=== PATIENT | male | born 1960 | race Caucasian/White ===

== ENCOUNTER 2020-03-27 12:42 | Outpatient (REF) | payer BC, SELFPAY | END 2020-03-27 12:43 | disposition home or self-care (01) | LOC: HO.LAB 12:42 | PROVIDERS: PCP Internal Medicine Medical Oncology; Visit Provider Internal Medicine Medical Oncology | DX: N39.0 Urinary tract infection, site not specified (principal) | CPT/HCPCS: 87086; 87147 ==

== ENCOUNTER 2020-07-15 06:58 | Outpatient (REF) | payer BC, SELFPAY ==
[2020-07-15 08:33] LABS: MANUAL DIFF FLAG NO
[2020-07-15 08:43] LABS: Basophils Percent Auto 0.2 % (0-2); Eosinophils Absolute Auto 0.2 X10*3/uL (0.0-0.4); Eosinophils Percent Auto 1.9 % (0-4); Hematocrit 50.6 % (42-52); Hemoglobin 16.6 g/dl (14.0-18.0); Imm Gran Abs Auto 0.03 X10*3/uL (0.00-0.03); Imm Gran Pct Auto 0.3 % (0.0-0.4); Lymphocytes Absolute Auto 2.2 X10*3/uL (1.2-4.9); Lymphocytes Percent Auto 24.4 % (20-40); Mean Corpuscular HGB Conc 32.8 g/dl (31.0-36.0); Mean Corpuscular Hemoglobin 30.5 pg (27.0-33.0); Mean Platelet Volume 10.5 fL (9.4-12.4); Monocytes Absolute Auto 0.7 X10*3/uL (0.1-1.2); Monocytes Percent Auto 8.2 % (2-11); Neutrophils Absolute Auto 5.8 X10*3/uL (2.0-8.3); Platelet Count 257 X10*3/uL (160-400); Red Blood Count 5.44 X10*6/uL (4.60-5.80); White Blood Count 8.9 X10*3/uL (4.8-10.8)
[2020-07-15 09:09] LABS: Estimated Average Glucose 255 mg/dL; Hemoglobin A1c % 10.5 %
[2020-07-15 09:13] LABS: Alanine Aminotransferase 23 U/L (0-40); Alkaline Phosphatase 71 U/L (39-117); Anion Gap 13 (12-20); Aspartate Amino Transferase 13 U/L (5-37); Bilirubin Total 0.8 mg/dL (0.0-1.0); Blood Urea Nitrogen 13 mg/dL (9-16); Calcium 8.7 mg/dL (8.4-10.2); Carbon Dioxide 27 mmol/L (22-29); Chloride 105 mmol/L (96-108); Cholesterol 155 mg/dL; Estimated Glomerular Filt Rate > 60; Glucose Fasting 230 mg/dL (60-99); HDL Cholesterol 29 mg/dL; LDL Cholesterol Calculated 92 mg/dl; Potassium 4.7 mmol/L (3.3-5.1); Sodium 140 mmol/L (135-145); Total Protein 6.2 g/dL (6.5-8.0); Triglycerides 170 mg/dL
[2020-07-15 09:18] LABS: Prostate Specific Antigen 1.49 ng/mL (<0.05-4.0)
== END 2020-07-15 06:59 | disposition home or self-care (01) ==
LOC: HO.LAB 06:58
PROVIDERS: PCP Internal Medicine Medical Oncology; Visit Provider Internal Medicine Medical Oncology
DX: E11.9 Type 2 diabetes mellitus without complications (principal); R97.20 Elevated prostate specific antigen [PSA]; E66.9 Obesity, unspecified; E78.5 Hyperlipidemia, unspecified
CPT/HCPCS: 36415; 80053; 80061; 83036; 84153; 85025

== ENCOUNTER 2020-10-16 10:09 | Outpatient (REF) | payer BC, SELFPAY ==
[2020-10-16 13:17] LABS: MANUAL DIFF FLAG NO
[2020-10-16 13:21] LABS: Basophils Percent Auto 0.4 % (0-2); Eosinophils Absolute Auto 0.1 X10*3/uL (0.0-0.4); Eosinophils Percent Auto 1.6 % (0-4); Hematocrit 48.6 % (42-52); Hemoglobin 15.9 g/dl (14.0-18.0); Imm Gran Abs Auto 0.02 X10*3/uL (0.00-0.03); Imm Gran Pct Auto 0.2 % (0.0-0.4); Lymphocytes Absolute Auto 2.6 X10*3/uL (1.2-4.9); Lymphocytes Percent Auto 30.9 % (20-40); Mean Corpuscular HGB Conc 32.7 g/dl (31.0-36.0); Mean Corpuscular Hemoglobin 30.7 pg (27.0-33.0); Mean Corpuscular Volume 93.8 fL (80-98); Mean Platelet Volume 10.3 fL (9.4-12.4); Monocytes Absolute Auto 0.7 X10*3/uL (0.1-1.2); Monocytes Percent Auto 8.6 % (2-11); Neutrophils Absolute Auto 4.9 X10*3/uL (2.0-8.3); Neutrophils Percent Auto 58.3 % (45-73); Platelet Count 297 X10*3/uL (160-400); Red Blood Count 5.18 X10*6/uL (4.60-5.80); Red Cell Distribution Width 12.1 % (11.0-16.0); White Blood Count 8.3 X10*3/uL (4.8-10.8)
[2020-10-16 13:45] LABS: Alanine Aminotransferase 20 U/L (0-40); Albumin Level 4.1 g/dL (3.5-5.0); Alkaline Phosphatase 73 U/L (39-117); Anion Gap 14 (12-20); Aspartate Amino Transferase 15 U/L (5-37); Bilirubin Total 0.5 mg/dL (0.0-1.0); Blood Urea Nitrogen 17 mg/dL (9-16); Calcium 9.2 mg/dL (8.4-10.2); Carbon Dioxide 25 mmol/L (22-29); Chloride 104 mmol/L (96-108); Cholesterol 156 mg/dL; Estimated Glomerular Filt Rate > 60; Glucose Fasting 209 mg/dL (60-99); HDL Cholesterol 29 mg/dL; LDL Cholesterol Calculated 98 mg/dl; Potassium 5.1 mmol/L (3.3-5.1); Sodium 138 mmol/L (135-145); Total Protein 6.5 g/dL (6.5-8.0); Triglycerides 149 mg/dL
[2020-10-16 14:00] LABS: Estimated Average Glucose 212 mg/dL
[2020-10-16 14:07] LABS: Prostate Specific Antigen 3.39 ng/mL (<0.05-4.0)
== END 2020-10-16 10:10 | disposition home or self-care (01) ==
LOC: HO.10HDL 10:09
PROVIDERS: PCP Internal Medicine Medical Oncology; Visit Provider Internal Medicine Medical Oncology
DX: Z12.5 Encounter for screening for malignant neoplasm of prostate (principal); E11.9 Type 2 diabetes mellitus without complications; E66.9 Obesity, unspecified; E78.5 Hyperlipidemia, unspecified; N52.9 Male erectile dysfunction, unspecified; N40.0 Benign prostatic hyperplasia without lower urinary tract symptoms
CPT/HCPCS: 36415; 80053; 80061; 83036; 84153; 85025

== ENCOUNTER 2021-01-17 07:52 | Outpatient (REF) | payer BC, SELFPAY ==
[2021-01-17 10:20] LABS: MANUAL DIFF FLAG NO
[2021-01-17 10:29] LABS: Basophils Percent Auto 0.3 % (0-2); Eosinophils Absolute Auto 0.1 X10*3/uL (0.0-0.4); Eosinophils Percent Auto 1.6 % (0-4); Hematocrit 47.2 % (42-52); Hemoglobin 15.8 g/dl (14.0-18.0); Imm Gran Abs Auto 0.02 X10*3/uL (0.00-0.03); Imm Gran Pct Auto 0.2 % (0.0-0.4); Lymphocytes Absolute Auto 2.1 X10*3/uL (1.2-4.9); Mean Corpuscular HGB Conc 33.5 g/dl (31.0-36.0); Mean Corpuscular Hemoglobin 31.2 pg (27.0-33.0); Mean Corpuscular Volume 93.1 fL (80-98); Mean Platelet Volume 10.4 fL (9.4-12.4); Monocytes Absolute Auto 0.7 X10*3/uL (0.1-1.2); Neutrophils Absolute Auto 5.8 X10*3/uL (2.0-8.3); Neutrophils Percent Auto 65.9 % (45-73); Platelet Count 253 X10*3/uL (160-400); Red Blood Count 5.07 X10*6/uL (4.60-5.80); Red Cell Distribution Width 12.1 % (11.0-16.0); White Blood Count 8.8 X10*3/uL (4.8-10.8)
[2021-01-17 10:40] LABS: Estimated Average Glucose 189 mg/dL; Hemoglobin A1c % 8.2 %
[2021-01-17 10:42] LABS: Alanine Aminotransferase 14 U/L (0-40); Alkaline Phosphatase 69 U/L (39-117); Anion Gap 14 (12-20); Aspartate Amino Transferase 13 U/L (5-37); Bilirubin Total 0.5 mg/dL (0.0-1.0); Blood Urea Nitrogen 12 mg/dL (9-16); Calcium 8.9 mg/dL (8.4-10.2); Carbon Dioxide 27 mmol/L (22-29); Chloride 105 mmol/L (96-108); Cholesterol 140 mg/dL; Estimated Glomerular Filt Rate > 60; Glucose Fasting 148 mg/dL (60-99); HDL Cholesterol 31 mg/dL; LDL Cholesterol Calculated 90 mg/dl; Potassium 4.5 mmol/L (3.3-5.1); Sodium 141 mmol/L (135-145); Total Protein 6.3 g/dL (6.5-8.0); Triglycerides 97 mg/dL
== END 2021-01-17 07:53 | disposition home or self-care (01) ==
LOC: HO.10HDL 07:52
PROVIDERS: Visit Provider Internal Medicine Medical Oncology
DX: E11.9 Type 2 diabetes mellitus without complications (principal); I25.10 Atherosclerotic heart disease of native coronary artery without angina pectoris; G47.30 Sleep apnea, unspecified
CPT/HCPCS: 36415; 80053; 80061; 83036; 85025

== ENCOUNTER 2021-04-01 07:44 | Outpatient (REF) | payer BC, SELFPAY ==
[2021-04-01 10:16] LABS: MANUAL DIFF FLAG NO
[2021-04-01 10:18] LABS: Basophils Percent Auto 0.3 % (0-2); Eosinophils Absolute Auto 0.2 X10*3/uL (0.0-0.4); Eosinophils Percent Auto 1.7 % (0-4); Hematocrit 47.3 % (42.0-52.0); Hemoglobin 15.7 g/dl (14.0-18.0); Imm Gran Abs Auto 0.03 X10*3/uL (0.00-0.03); Imm Gran Pct Auto 0.3 % (0.0-0.4); Lymphocytes Absolute Auto 2.2 X10*3/uL (1.2-4.9); Lymphocytes Percent Auto 23.8 % (20-40); Mean Corpuscular HGB Conc 33.2 g/dl (31.0-36.0); Mean Corpuscular Hemoglobin 31.1 pg (27.0-33.0); Mean Corpuscular Volume 93.7 fL (80.0-98.0); Mean Platelet Volume 10.3 fL (9.4-12.4); Monocytes Absolute Auto 0.8 X10*3/uL (0.1-1.2); Monocytes Percent Auto 8.2 % (2-11); Neutrophils Absolute Auto 6.2 x10*3/uL (2.0-8.3); Neutrophils Percent Auto 65.7 % (45-73); Platelet Count 241 X10*3/uL (160-400); Red Blood Count 5.05 X10*6/uL (4.60-5.80); Red Cell Distribution Width 12.6 % (11.0-16.0); White Blood Count 9.4 X10*3/uL (4.8-10.8)
[2021-04-01 10:39] LABS: Estimated Average Glucose 174 mg/dL; Hemoglobin A1c % 7.7 %
[2021-04-01 10:51] LABS: Alanine Aminotransferase 16 U/L (0-40); Albumin Level 3.9 g/dL (3.5-5.0); Alkaline Phosphatase 61 U/L (39-117); Anion Gap 13 (12-20); Aspartate Amino Transferase 12 U/L (5-37); Bilirubin Total 0.2 mg/dL (0.0-1.0); Blood Urea Nitrogen 12 mg/dL (9-16); Carbon Dioxide 28 mmol/L (22-29); Chloride 105 mmol/L (96-108); Estimated Glomerular Filt Rate > 60; Glucose Fasting 150 mg/dL (60-99); Potassium 4.6 mmol/L (3.3-5.1); Sodium 141 mmol/L (135-145); Total Protein 6.3 g/dL (6.5-8.0)
[2021-04-01 11:21] LABS: PSA,Total (Free>4and<10) 1.41 ng/mL (0.00-4.00)
== END 2021-04-01 07:45 | disposition home or self-care (01) ==
LOC: HO.10HDL 07:44
PROVIDERS: Visit Provider Internal Medicine Medical Oncology
DX: Z12.5 Encounter for screening for malignant neoplasm of prostate (principal); H60.391 Other infective otitis externa, right ear; R39.9 Unspecified symptoms and signs involving the genitourinary system; M54.50 Low back pain, unspecified; I25.10 Atherosclerotic heart disease of native coronary artery without angina pectoris; N52.9 Male erectile dysfunction, unspecified; E11.9 Type 2 diabetes mellitus without complications
CPT/HCPCS: 36415; 80053; 83036; 84153; 85025

== ENCOUNTER 2021-11-13 08:46 | Outpatient (REF) | payer BC, SELFPAY ==
--- NOTE | ~2021-11-13 | XR_ITS ---
EXAMINATION: XR SHOULDER, LEFT CLINICAL INFORMATION: Shoulder pain COMPARISON: None TECHNIQUE: Left shoulder is imaged in 3 views. FINDINGS: No fracture or dislocation. No visible rotator cuff calcifications. The glenohumeral joint appears normal. The acromioclavicular alignment is normal. There are osteoarthritic changes acromioclavicular joint with joint narrowing and superior to inferior spurring. XR/XR shoulder LT min 2V IMPRESSION: -Osteoarthritis acromioclavicular joint. -No visible rotator cuff calcifications.
== END 2021-11-13 08:47 | disposition home or self-care (01) ==
LOC: HO.HOSX 08:46
PROVIDERS: Visit Provider Orthopaedic Surgery
DX: M25.512 Pain in left shoulder (principal)
CPT/HCPCS: 73030

== ENCOUNTER 2022-01-06 08:25 | Outpatient (REF) | payer BC, SELFPAY ==
[2022-01-06 08:39] LABS: MANUAL DIFF FLAG NO
[2022-01-06 09:14] LABS: Basophils Percent Auto 0.4 % (0-2); Eosinophils Absolute Auto 0.1 X10*3/uL (0.0-0.4); Eosinophils Percent Auto 1.5 % (0-4); Hematocrit 46.9 % (42.0-52.0); Hemoglobin 15.5 g/dl (14.0-18.0); Imm Gran Abs Auto 0.03 X10*3/uL (0.00-0.03); Imm Gran Pct Auto 0.4 % (0.0-0.4); Lymphocytes Absolute Auto 2.1 X10*3/uL (1.2-4.9); Lymphocytes Percent Auto 24.2 % (20-40); Mean Corpuscular Hemoglobin 31.2 pg (27.0-33.0); Mean Corpuscular Volume 94.4 fL (80.0-98.0); Mean Platelet Volume 10.8 fL (9.4-12.4); Monocytes Absolute Auto 0.9 X10*3/uL (0.1-1.2); Monocytes Percent Auto 10.2 % (2-11); Neutrophils Absolute Auto 5.4 x10*3/uL (2.0-8.3); Neutrophils Percent Auto 63.3 % (45-73); Platelet Count 208 X10*3/uL (160-400); Red Blood Count 4.97 X10*6/uL (4.60-5.80); Red Cell Distribution Width 12.3 % (11.0-16.0); White Blood Count 8.5 X10*3/uL (4.8-10.8)
[2022-01-06 09:37] LABS: Estimated Average Glucose 177 mg/dL; Hemoglobin A1c % 7.8 %
[2022-01-06 09:48] LABS: Alanine Aminotransferase 13 U/L (0-40); Albumin Level 4.2 g/dL (3.5-5.0); Alkaline Phosphatase 65 U/L (39-117); Anion Gap 15 (12-20); Aspartate Amino Transferase 15 U/L (5-37); Bilirubin Total 0.5 mg/dL (0.0-1.0); Blood Urea Nitrogen 13 mg/dL (9-16); Calcium 9.4 mg/dL (8.4-10.2); Carbon Dioxide 27 mmol/L (22-29); Chloride 104 mmol/L (96-108); Cholesterol 136 mg/dL; Estimated Glomerular Filt Rate > 60; Glucose Fasting 146 mg/dL (60-99); HDL Cholesterol 34 mg/dL; LDL Cholesterol Calculated 83 mg/dl; Potassium 5.3 mmol/L (3.3-5.1); Sodium 141 mmol/L (135-145); Total Protein 6.4 g/dL (6.5-8.0); Triglycerides 97 mg/dL
[2022-01-06 10:09] LABS: Prostate Specific Antigen 1.33 ng/mL (<0.05-4.0)
[2022-01-06 10:30] LABS: Creatinine Urine 145.23 mg/dL; Microalbum/Creatinine Ratio Ur 5.5 ug/mg cr
== END 2022-01-06 08:26 | disposition home or self-care (01) ==
LOC: HO.LAB 08:25
PROVIDERS: PCP Internal Medicine Medical Oncology; Visit Provider Internal Medicine Medical Oncology
DX: Z12.5 Encounter for screening for malignant neoplasm of prostate (principal); R97.20 Elevated prostate specific antigen [PSA]; E78.5 Hyperlipidemia, unspecified; E66.01 Morbid (severe) obesity due to excess calories; E11.9 Type 2 diabetes mellitus without complications
CPT/HCPCS: 36415; 80053; 80061; 82043; 83036; 84153; 85025

== ENCOUNTER 2022-01-13 10:00 | Outpatient (RCR) | payer BC, SELFPAY ==
--- NOTE | 2021-12-16 13:56 | MHC.PT.EP ---
[facility] [place] Office [place] Office [place] Office [address] [phone] F: [phone] F: [phone] F: [phone] F: [phone] Physical Therapy Plan of Care Date of Evaluation: Date of Surgery: N/A Diagnosis: impingement syndrome of left shoulder Assessment: Pt is a 60 yo male presenting to PT with referral for left shoulder impingement. He presents to PT with current impairments in pain, decreased ROM, impaired strength, impaired postural awareness, and soft tissue restrictions. He is TTP throughout L UT, levator, AC jt, and RTC. He is limited functionally by sleeping, lifting, reaching, and overhead ADLs. He is a good candidate for skilled PT in order to address current impairments to facilitate return to PLOF. He will be seen 2x/wewek for 4 weeks and will be reassessed at that time. Frequency and Duration: The patient will be seen 2x/4weeks Short Term Goals: Pt will be I in HEP to show independence in management of condition Pt will improve shoulder IR ROM by 10* to improve tolerance to ADLs such as dressing. Color Repairer Goals: Pt will demonstrate full ROM throughout L shoulder to assist with overhead reaching and overhead ADLs Pt will improve shoulder flexion strength to 5/5 MMT grade to assist with lifting mechanics. Pt will demonstrate improvements in function as evidenced by statistically significant improvement in SPADI outcome measure Treatment Plan: Modalities to reduce pain, spasms and effusion. Manual therapy to restore motion and function. Therapeutic exercise to improve strength and flexibility. Neuromuscular re-education for posture and balance. Therapeutic activities to return to functional activities of daily living. Electronically signed by: Zuleyka Bauman, PT, DPT Please sign and return to therapist. Thank you for your referral.
--- NOTE | 2022-02-23 15:26 | MHC.PT.DC ---
[facility] [place] Office [place] Office [place] Office [address] [facility] [phone] F: [phone] F: [phone] F: [phone] F: [phone] Physical Therapy Discharge Report Diagnosis: impingement syndrome of left shoulder Date of Surgery: N/A Date of Evaluation: 12/16/21 Date of Discharge: 02/23/22 Treatments to Date: 5 Cancellations to Date: 2 No Shows to Date: 1 Discharge Status: Visit Non-compliance Discharge Summary: Pt was seen for PT from 12/16/21-01/13/22. His last attended appointment was 01/13/22. He attended 5 PT sessions, had 2 cancellations and 1 no-show appointment including a no-show for his last scheduled appointment. Pt is being D/C from skilled PT as he has not attended or reached out to reschedule in > 30 days. Pt current level of function unknown at this time. Electronically signed by: Zuleyka Bauman, PT, DPT Please sign and return to therapist. Thank you for your referral.
== END 2022-02-23 15:26 | disposition home or self-care (01) ==
LOC: HO.PT 10:00
PROVIDERS: PCP Internal Medicine Medical Oncology; Visit Provider Orthopaedic Surgery
DX: M75.42 Impingement syndrome of left shoulder (principal)
CPT/HCPCS: 97110; 97140; 97161

== ENCOUNTER 2022-07-21 13:50 | Outpatient (REF) | payer BC, SELFPAY ==
--- NOTE | ~2022-07-21 | XR_ITS ---
EXAMINATION: XR CHEST CLINICAL INFORMATION: Pneumonia COMPARISON: Chest radiographs 02/16/2017, 11/02/2016; right ribs 02/16/2017. TECHNIQUE: Frontal view and 3 lateral views of the chest are obtained for 4 views. FINDINGS: The lungs are clear and there is no airspace consolidation or groundglass opacity. Heart size normal. Vascularity normal. Costophrenic sulci are clear. The hilar and mediastinal contours are unremarkable. Small nodular density corresponding to a bone island overlying right anterior third rib is similar to rib series 02/16/2017. There are old healed fractures right seventh and eighth ribs. Degenerative changes thoracic spine. No acute bony abnormality. XR/XR chest 2V IMPRESSION: No acute intrathoracic disease.
== END 2022-07-21 13:51 | disposition home or self-care (01) ==
LOC: HO.XRAY 13:50
PROVIDERS: PCP Internal Medicine Medical Oncology; Visit Provider Internal Medicine Medical Oncology
DX: J18.9 Pneumonia, unspecified organism (principal)
CPT/HCPCS: 71046

== ENCOUNTER 2022-10-07 07:05 | Outpatient (REF) | payer BC, SELFPAY ==
[2022-10-07 07:17] LABS: MANUAL DIFF FLAG NO
[2022-10-07 08:49] LABS: Basophils Percent Auto 0.4 % (0-2); Eosinophils Absolute Auto 0.2 X10*3/uL (0.0-0.4); Hematocrit 49.1 % (42.0-52.0); Hemoglobin 16.3 g/dl (14.0-18.0); Imm Gran Abs Auto 0.02 X10*3/uL (0.00-0.03); Imm Gran Pct Auto 0.2 % (0.0-0.4); Lymphocytes Absolute Auto 2.7 X10*3/uL (1.2-4.9); Lymphocytes Percent Auto 26.3 % (20-40); Mean Corpuscular HGB Conc 33.2 g/dl (31.0-36.0); Mean Corpuscular Hemoglobin 31.2 pg (27.0-33.0); Mean Corpuscular Volume 93.9 fL (80.0-98.0); Mean Platelet Volume 10.1 fL (9.4-12.4); Monocytes Percent Auto 9.5 % (2-11); Neutrophils Absolute Auto 6.3 x10*3/uL (2.0-8.3); Neutrophils Percent Auto 61.6 % (45-73); Platelet Count 273 X10*3/uL (160-400); Red Blood Count 5.23 X10*6/uL (4.60-5.80); Red Cell Distribution Width 12.6 % (11.0-16.0); White Blood Count 10.3 X10*3/uL (4.8-10.8)
[2022-10-07 09:00] LABS: Estimated Average Glucose 117 mg/dL; Hemoglobin A1c % 5.7 %
[2022-10-07 09:28] LABS: Alanine Aminotransferase 13 U/L (0-40); Albumin Level 4.1 g/dL (3.5-5.0); Alkaline Phosphatase 66 U/L (39-117); Anion Gap 15 (12-20); Aspartate Amino Transferase 13 U/L (5-37); Bilirubin Total 0.6 mg/dL (0.0-1.0); Blood Urea Nitrogen 15 mg/dL (9-16); Calcium 9.7 mg/dL (8.4-10.2); Carbon Dioxide 25 mmol/L (22-29); Chloride 105 mmol/L (96-108); Cholesterol 137 mg/dL; Estimated Glomerular Filt Rate > 60; Glucose Random 109 mg/dL (60-115); HDL Cholesterol 35 mg/dL; LDL Cholesterol Calculated 83 mg/dl; Potassium 4.3 mmol/L (3.3-5.1); Sodium 141 mmol/L (135-145); Total Protein 6.8 g/dL (6.5-8.0); Triglycerides 95 mg/dL
[2022-10-07 09:39] LABS: Prostate Specific Antigen 3.05 ng/mL (<0.05-4.0)
== END 2022-10-07 07:06 | disposition home or self-care (01) ==
LOC: HO.LAB 07:05
PROVIDERS: PCP Internal Medicine Medical Oncology; Visit Provider Internal Medicine Medical Oncology
DX: I25.10 Atherosclerotic heart disease of native coronary artery without angina pectoris (principal); E11.9 Type 2 diabetes mellitus without complications; R97.20 Elevated prostate specific antigen [PSA]; N40.0 Benign prostatic hyperplasia without lower urinary tract symptoms; E66.01 Morbid (severe) obesity due to excess calories; Z12.5 Encounter for screening for malignant neoplasm of prostate
CPT/HCPCS: 36415; 80053; 80061; 83036; 84153; 85025

== ENCOUNTER 2022-10-08 10:42 | Outpatient (AMB) | payer BC, SELFPAY ==
[2022-10-08 10:52] VITALS: BP 136/75; PULSE 77; BMI 47.4
--- NOTE | 2022-10-08 10:52 | A.OFFVIS_ITS ---
Intake Vital Signs 10/08/22 10:52 Height 5 ft 10 in Weight 330 lb 7.567 oz BMI 47.4 BP 136/75 Blood Pressure Location Lt brachial Position Sitting Pulse 77 Intake Visit Reasons: colonoscopy screening Intake Note: Ulises presents in office as a new.patient for a colonoscopy screening PT CC: pt reports having no concerns pt denies any other GI Issues Equity Research Analyst Required: No Accompanied by: Spouse Allergies No Known Allergies Allergy (Unverified 10/08/22 10:52) Medication List - Last Reviewed 10/08/22 by Deandre Mckeon gabapentin 300 mg PO TID magnesium 250 mg PO DAILY meclizine 25 mg PO TID PRN metformin 1,000 mg PO BID metoprolol tartrate 25 mg PO BID omeprazole 20 mg PO DAILY pioglitazone 30 mg PO DAILY simvastatin 40 mg PO DAILY tamsulosin 0.4 mg PO DAILY HPI HPI Comments History of Present Illness Details 61-year-old male referred for screening colonoscopy- colonoscopy > 10 years ago had multiple polyps polyps- never followed up-he is here today with his he says he has no GI he or general issues Bowels are normal- Appetite is good Cardiology- follows with PCP- distant hx cardiac stents- No nausea, vomiting, hematemesis, hematochezia fever chills No chest pain, shortness of breath headaches or disease PFSH Medical History Diabetes Surgical History History of intravascular stent placement Social History (Updated 10/08/22 @ 11:21 by Nancy Byers PA-C) Household Members Other:: Current occupational status: employed Current occupation: [employer] Review of Systems Const All systems reviewed & are unremarkable except as noted in HPI and below Card Denies chest pain and Denies dyspnea Resp Denies dyspnea GI Denies abdominal pain, Denies hematochezia, Reports heartburn, Denies diarrhea, Denies nausea and Denies vomiting Physical Exam Vital Signs: Last Vital Signs Pulse 77 10/08/22 10:52 BP 136/75 10/08/22 10:52 BMI result Body Mass Index 47.4 Const General: comfortable Nutritional Appearance: obese Orientation/consciousness: patient oriented x3 Limitations: no limitations Eyes Sclerae: sclerae normal Resp Effort & Inspection: normal respiratory effort and able to speak in complete sentences Auscultation: clear to auscultation bilaterally Cardio Rate: regular rate Rhythm: regular rhythm Heart sounds: S1 normal heart sound present and S2 normal heart sound present GI Inspection: Yes obesity Palpation (GI): Soft to palpation and nontender Auscultation: normal bowel sounds Skin General skin exam: no rashes or lesions noted Neuro General: patient oriented x3 Extrem General: Yes full ROM Psych Speech and movement: Clear speech present Affect: normal affect Attitude: cooperative Thought process: Normal thought process present Thought content: Normal thought content present Judgement: Fair judgement present (Psych) Results Reviewed Results Reviewed: 2012- Dr. Montilla- 7 adenomas- 2 hyperplastic Assessment & Plan Assessment & Plan (1) Acid reflux: Code(s): K21.9 - Gastro-esophageal reflux disease without esophagitis (2) Hx of adenomatous colonic polyps: Code(s): Z86.010 - Personal history of colonic polyps Plan: Polyp surveillance colonoscopy in reinforced importance of follow up Plan Colonoscopy MG prep omit metformin kaveh before and no DM meds morning of- Bariatric bed Orders: Orders EGD/[place] Combo - GI Use Only Today K21.9 - Gastro-esophageal reflux disease without esophagitis, Z86.010 - Personal history of colonic polyps Medications: New bisacodyl (Dulcolax (bisacodyl)) Take 4 tablets by mouth at 12:00pm the day before your procedure. 20 mg (4 x 5 mg) PO ONCE 1 day 4 tabs 0RF colonoscopy prep Z12.11 - Encounter for screening for malignant neoplasm of colon polyethylene glycol 3350 (Miralax) Take as directed by mouth the day before your procedure. 238 grams PO ONCE 1 day 238 grams 0RF Patient Instructions: 61-year-old male personal history of multiple colon adenomas-has not followed up since 17/03-no GI complaints Scheduled for polyp surveillance colonoscopy, discussed procedure, rare risk need for escorted due to anesthesia Importance of follow through, his is present there are no barriers to understanding identify-review diabetes medications Encouraged to call with any questions or concerns Coding Level of Care Code New Pt Level 3 (54735) Diagnoses Acid reflux K21.9 Hx of adenomatous colonic polyps Z86.010 Time Spent (min) 35
== END 2022-10-08 12:25 | disposition home or self-care (01) ==
PROVIDERS: PCP Internal Medicine Medical Oncology; Visit Provider Physician Assistant
DX: K21.9 Gastro-esophageal reflux disease without esophagitis (principal); Z86.010 Personal history of colon polyps
CPT/HCPCS: 99203

== ENCOUNTER → 2022-10-08 10:42 | Outpatient (BNVA) | payer BC, SELFPAY | PROVIDERS: PCP Internal Medicine Medical Oncology; Visit Provider Physician Assistant ==

== ENCOUNTER 2022-10-30 10:36 | Outpatient (AMB) | payer BC, SELFPAY ==
--- NOTE | 2022-10-30 10:42 | A.OFFVIS_ITS ---
Intake Vital Signs 10/30/22 10:43 Height 5 ft 10 in Weight 330 lb BMI 47.3 Intake Visit Reasons: Left Shoulder Pain Intake Note: Ulises is a 61 year old male who presents today for a follow up of his left shoulder. When he was seen he was referred to physical therapy. States he has completed P.T but cont's to be limited when reaching back. States he is cont' to do his shoulder exercises at home. Allergies No Known Allergies Allergy (Unverified 10/30/22 10:44) HPI Left Shoulder Pain HPI Details lUises is a 61 year old Diabetic man who returns with complaints of left shoulder pain. He was last seen on 11/13/21 for shoulder impingement, and sent for PT. He says he has completed PT and continues to do exercises at home, with some relief. He complains today of pain in his left shoulder, worse with overhead activity, reaching behind his back, & at night. He says he has pain all day long and is worst with reaching backwards. He has evidence of bilateral carpal tunnel syndrome and permanent nerve damage in his shoulders , seen on a NCS sometime in 2021, performed by Dr. Hurley. These results are not in the system at this time and the patient does not have a copy. He has numbness & tingling from his shoulders and down into his hands. He denies a C-spine MRI in the past, and has not been seen by a specialist for this. He takes Gabapentin, with some relief, and said PT helps more with his numbness than with his pain. [facility] Medical History Diabetes Surgical History History of intravascular stent placement Social History Household Members Other:: Current occupational status: employed Current occupation: [employer] Review of Systems Const All systems reviewed & are unremarkable except as noted in HPI and below Physical Exam Vital Signs: BMI result Body Mass Index 47.3 Const General: no acute distress and alert Orientation/consciousness: patient oriented x3 Neuro General: patient oriented x3 Extrem Other: Left Shoulder: - empty can + H&N + Crank test - Lif[facility] ER 45 IR L5 with pain Psych Appearance: grossly normal Affect: normal affect Attitude: cooperative Office Procedures Joint Injection/Drain Joint Injection/Drain Details: Injected 1 mL of Decadron and 3 mL 1% lidocaine and 3 mL of 0.25% Marcaine. Site was prepped using aseptic technique. Patient tolerated the procedure well. Primary Site: left shoulder Approach Used: posterolateral Coding 49990 - Large joint Procedure code (CPT) selection complete Results Reviewed Results Reviewed: 10/30/22 11:11 Lidocaine HCl 2 % MPF [Xylocaine 2 % MPF] 5 ml .ROUTE .STK-MED ONE dexAMETHasone sod phosphate [Decadron] 4 mg .ROUTE .STK-MED ONE I personally reviewed relevant radiographs. AC OA left shoulder. Otherwise unremarkable. Assessment & Plan Assessment & Plan (1) Impingement syndrome, shoulder, left: Code(s): M75.42 - Impingement syndrome of left shoulder Plan: This is a 61 year old man with left shoulder impingement. He has pain with daily activity, worse with overhead activity and at night. He found some relief from PT, and denies any other treatment. I discussed his diagnosis and treatment options. I injected his left shoulder today, which he tolerated well. He can follow up prn (2) Diabetes mellitus: Code(s): E11.9 - Type 2 diabetes mellitus without complications Plan: I discussed the hyperglycemic effects of steroid injections. (3) Numbness and tingling of both upper extremities: Code(s): R20.0 - Anesthesia of skin; R20.2 - Paresthesia of skin Plan: Patient reports having a NCS performed by Dr. Hurley in 2021, that is not in our system. He has numbness, tingling, and burning primarily in his left shoulder and down into his hands. He was told he had bilateral carpal tunnel syndrome. I will reach out to Dr. Hurley to obtain a copy of this study. He will follow up when completed for review. Plan Scribed for Min Marie MD by Carlos Manuel Platt, medical information officer, on 10/30/22 at 11:15 AM, EST. Coding Level of Care Code Est Pt Level 4 (63820) Diagnoses Impingement syndrome, shoulder, left M75.42 Diabetes mellitus E11.9 Numbness and tingling of both upper extremities R20.0; R20.2 CPT Codes Coding - 98761 Large joint: 35641 - Large joint ([id number])
[2022-10-30 10:43] VITALS: BMI 47.3
== END 2022-10-30 12:03 | disposition home or self-care (01) ==
PROVIDERS: PCP Internal Medicine Medical Oncology; Visit Provider Orthopaedic Surgery
DX: M75.42 Impingement syndrome of left shoulder (principal); R20.0 Anesthesia of skin; R20.2 Paresthesia of skin
CPT/HCPCS: 20610; 99214

== ENCOUNTER → 2022-10-30 10:36 | Outpatient (BNVA) | payer BC, SELFPAY | PROVIDERS: PCP Internal Medicine Medical Oncology; Visit Provider Orthopaedic Surgery | DX: M75.42 Impingement syndrome of left shoulder (principal); R20.0 Anesthesia of skin; R20.2 Paresthesia of skin; E11.9 Type 2 diabetes mellitus without complications | CPT/HCPCS: 20610; J1100 ==

== ENCOUNTER 2022-12-15 09:21 | Day surgery (SDC) | payer BC, SELFPAY ==
[2022-12-11 12:26] VITALS: BMI 47.4
[2022-12-14 10:01] VITALS: BMI 43.0
--- NOTE | 2022-12-14 11:05 | P.CONAN_ITS ---
Documented by User: Mala Reynaga NP 12/14/22 11:51 HPI - Anesthesia Eval Consult details Narrative: 61yo M for?Upper Endoscopy and Colonoscopy CAD with stent, 2007. No cardiology visits since 2011 per [facility]. Ozempic SQ weekly on Wednesdays. Last dose 12/09/22. [facility] Active Problems Active Problems: All Active Problems (Updated 12/14/22 @ 10:05 by Luiza Garza RN) Numbness and tingling of both upper extremities (Acute) Hx of adenomatous colonic polyps (Acute) Acid reflux (Acute) Encounter for screening colonoscopy (Acute) Diabetes mellitus (Acute) Impingement syndrome, shoulder, left (Acute) Past Medical History Medical History Shoulder pain, bilateral CTS (carpal tunnel syndrome) Hx of renal calculi BPH (benign prostatic hyperplasia) BERE (obstructive sleep apnea) Personal history of COVID-19 DJD (degenerative joint disease) Renal calculus, bilateral Elevated cholesterol CAD (coronary artery disease) Diabetes Surgical History Surgical History Hx of colonoscopy History of surgery Hx of arthroscopic knee surgery History of incision and drainage Hx of cardiac catheterization H/O heart artery stent History of intravascular stent placement Social History Social History Household Members Other:: Are you a primary patient care to a significant other at home: No Do you presently have visiting nurse or other home services: No Patient Tobacco Use Status: Current everyday Tobacco user Tobacco use type: Cigarette Cigarettes Per Day: 10 Years Smoked: 40+ Use of substances other than those prescribed or required for medical reasons: No Have you been hit, kicked, punched, or otherwise hurt by someone within the past year? If so, by whom?: No Are you DNR?: No Advance Directives: No Advance Directives Information Provided: Yes Advance Directives on File: No Recently lost weight without trying: No Poor oral hygiene: No Current occupational status: employed Current occupation: [employer] Meds Allergies Allergy/AdvReac Type Severity Reaction Status Date / Time codeine Allergy Unknown Verified 12/14/22 09:57 latex Allergy Rash Verified 12/14/22 11:07 Home Medications Medication Instructions Recorded Confirmed Last Taken Type gabapentin 300 mg capsule 300 mg PO TID PRN Pain 11/13/21 12/14/22 Unknown History meclizine 25 mg tablet 25 mg PO TID PRN Vertigo 11/13/21 12/14/22 Unknown History metformin 1,000 mg tablet 1,000 mg PO DAILY 11/13/21 12/14/22 Unknown History pioglitazone 30 mg tablet 30 mg PO DAILY 11/13/21 12/14/22 Unknown History simvastatin 40 mg tablet 40 mg PO DAILY 11/13/21 12/14/22 Unknown History magnesium 250 mg tablet 250 mg PO DAILY 10/08/22 12/14/22 Unknown History metoprolol tartrate 25 mg tablet 25 mg PO DAILY 10/08/22 12/14/22 12/15/22 History omeprazole 20 mg tablet,delayed 20 mg PO DAILY 10/08/22 12/14/22 12/15/22 History release tamsulosin 0.4 mg capsule 0.4 mg PO DAILY 10/08/22 12/14/22 Unknown History aspirin 81 mg chewable tablet 81 mg PO DAILY 12/14/22 12/14/22 Unknown History semaglutide 0.25 mg or 0.5 mg (2 0.5 mg subcut QWEEK 12/14/22 12/14/22 Unknown History mg/3 mL) subcutaneous pen injector (Ozempic) Exam Exam Date and Time: December 14, 2022 1105 Height,Weight and Vital Signs: Height 5 ft 10 in Weight 136.078 kg Pertinent Lab Results Pertinent Lab Results: Laboratory Tests 10/07/22 07:16 WBC 10.3 Hgb 16.3 Hct 49.1 Plt Count 273 D Sodium 141 Potassium 4.3 Chloride 105 Carbon Dioxide 25 BUN 15 Creatinine 0.88 Assessment and Plan Assessment Anesthesia Assessment: Chart Reviewed Documented by User: Babatunde Infante MD 12/15/22 11:16 [facility] Past Medical History Medical History Shoulder pain, bilateral CTS (carpal tunnel syndrome) Hx of renal calculi BPH (benign prostatic hyperplasia) BERE (obstructive sleep apnea) Personal history of COVID-19 DJD (degenerative joint disease) Renal calculus, bilateral Elevated cholesterol CAD (coronary artery disease) Diabetes Family History Family history of problems with anesthesia: No Surgical History Surgical History Hx of colonoscopy History of surgery Hx of arthroscopic knee surgery History of incision and drainage Hx of cardiac catheterization H/O heart artery stent History of intravascular stent placement History of Problems with Anesthesia: No Social History Social History Household Members Other:: Are you a primary patient care to a significant other at home: No Do you presently have visiting nurse or other home services: No Patient Tobacco Use Status: Current everyday Tobacco user Tobacco use type: Cigarette Cigarettes Per Day: 10 Years Smoked: 40+ Use of substances other than those prescribed or required for medical reasons: No Have you been hit, kicked, punched, or otherwise hurt by someone within the past year? If so, by whom?: No Are you DNR?: No Advance Directives: No Advance Directives Information Provided: Yes Advance Directives on File: No Recently lost weight without trying: No Poor oral hygiene: No Current occupational status: employed Current occupation: [employer] Meds Allergies Allergy/AdvReac Type Severity Reaction Status Date / Time codeine Allergy Unknown Verified 12/14/22 09:57 latex Allergy Rash Verified 12/14/22 11:07 Home Medications Medication Instructions Recorded Confirmed Last Taken Type gabapentin 300 mg capsule 300 mg PO TID PRN Pain 11/13/21 12/14/22 Unknown History meclizine 25 mg tablet 25 mg PO TID PRN Vertigo 11/13/21 12/14/22 Unknown History metformin 1,000 mg tablet 1,000 mg PO DAILY 11/13/21 12/14/22 Unknown History pioglitazone 30 mg tablet 30 mg PO DAILY 11/13/21 12/14/22 Unknown History simvastatin 40 mg tablet 40 mg PO DAILY 11/13/21 12/14/22 Unknown History magnesium 250 mg tablet 250 mg PO DAILY 10/08/22 12/14/22 Unknown History metoprolol tartrate 25 mg tablet 25 mg PO DAILY 10/08/22 12/14/22 12/15/22 History omeprazole 20 mg tablet,delayed 20 mg PO DAILY 10/08/22 12/14/22 12/15/22 History release tamsulosin 0.4 mg capsule 0.4 mg PO DAILY 10/08/22 12/14/22 Unknown History aspirin 81 mg chewable tablet 81 mg PO DAILY 12/14/22 12/14/22 Unknown History semaglutide 0.25 mg or 0.5 mg (2 0.5 mg subcut QWEEK 12/14/22 12/14/22 Unknown History mg/3 mL) subcutaneous pen injector (Ozempic) Exam Airway Mallampati Class: III TM Dist: >3cm Neck ROM: Limited Loose/Missing/Broken Teeth: Yes Assessment and Plan Assessment Anesthesia Assessment: Anesthesia Plan Discussed Final Anesthetic Review Family History of Problems with Anesthesia: No History of Problems with Anesthesia: No NPO: Yes ASA Class: III Final Preanesthetic Review: No Changes in Pt Med Stat, Meds/Allgs Chart Reviewed, Consent Obtained/Reviewed and Anes Risks/Benef Reviewed Patient Risk: High Procedure Risk: Low Anesthetic Plan Anesthetic Plan: MAC: Disposition: Standard PACU
[2022-12-15 09:48] VITALS: BP 133/84; PULSE 79; RESP 18; TEMP 36.4; O2SAT 95
--- NOTE | 2022-12-15 09:48 | MHC.SHP ---
Pre-Procedural Eval Section A Date of Service: 12/15/22 Section B Chief Complaint: Personal history of colonic polyps,GERD Relevant Family History (Specify if Yes): No Relevant Social History: Tobacco Use Present Medications: see Short Stay Collaborative assessment Medical History: Significant History (Shoulder pain, bilateral CTS (carpal tunnel syndrome) Hx of renal calculi BPH (benign prostatic hyperplasia) BERE (obstructive sleep apnea) Personal history of COVID-19 DJD (degenerative joint disease) Renal calculus, bilateral Elevated cholesterol CAD (coronary artery disease) Diabetes) History of Previous Operations: Relevant previous surgery/procedure and date(s) (History of intravascular stent placement, Hx of colonoscopy History of surgery Hx of arthroscopic knee surgery History of incision and drainage Hx of cardiac catheterization H/O heart artery stent) Allergies: Allergies Allergy/AdvReac Type Severity Reaction Status Date / Time codeine Allergy Unknown Verified 12/14/22 09:57 latex Allergy Rash Verified 12/14/22 11:07 Review of Systems Sugical H&P ROS: Negative: Constitution, Cardiovascular, Respiratory, Neurological, Psychiatric, Hem-Onc, Allergic/Immunologic, Gastrointestinal, Genitourinary, Musculoskeletal, Integumentary, Endocrine and Eyes/Ears/Nose/Throat Exam Surgical H&P Exam: Normal: HEENT, Normal: Heart, Normal: Lungs, Normal: Extremities, Normal: Abdomen, Normal: Skin and Normal: Neurological Exam Comment: obese Plan Diagnosis/Plan: Unchanged I have reviewed the history and physical and performed a pertinent physical examination on my patient. No changes have occurred unless specified. Time Spent With Patient Time: Total time managing care of this patient today ____ minutes.
[2022-12-15 10:00] LABS: Glucose, Whole Blood 98 mg/dL (60-115)
[2022-12-15] MEDS: Lactated Ringers 1,000 ML 100 ML IVCONT (10:06)
--- NOTE | 2022-12-15 10:38 | W.PM.OPN ---
Operative Note Operative Note Date of Service: 12/15/22 Narrative: Operative Information Procedure Description: EGD, Colonoscopy Indication: GERD, hx of colon polyps Anesthesia: MAC FLEXIBLE TRANSORAL UPPER GASTROINTESTINAL ENDOSCOPY AND COLONOSCOPY PROCEDURE NOTE UPPER ENDOSCOPY Consent: Indications for the procedure and potential complications of bleeding, perforation, reaction to medications and missed diagnosis were discussed with the patient and informed consent was obtained. Instrument: Olympus GIF H 190 J mid size upper endoscope Monitoring: Vital signs and clinical assessment, continuous EKG monitoring, Pulse oximetry, Carbon Dioxide monitoring and blood pressure monitoring were done throughout the procedure. Procedure: The patient was placed in the left lateral decubitis position and pre-procedure medications were administered and a bite block was placed. The endoscope was inserted into the mouth and advanced under direct vision to the third part of duodenum. A careful inspection was made as the upper endoscope was withdrawn including a retroflexed examination of the proximal stomach; Findings and interventions are described below. Findings: Larynx:normal Esophagus: GE junction at 42 cm, diaphragm hiatus at 42 cm, possible short segment barretts with irregular z line, bx taken Stomach: Mild erythema. Biopsies were obtained. Grade 2 flap valve on retroflexed examination of the cardia. Duodenum: Normal bulb and descending duodenum, Intervention: Biopsies as noted above COLONOSCOPY Instrument: Olympus variable stiffness ADULT scope 190L Colonoscopy Monitoring: Vital signs and clinical assessment, continuous EKG monitoring, Pulse oximetry, Carbon Dioxide monitoring and blood pressure monitoring were done throughout the procedure. Colon withdrawal time was 10 minutes. Procedure: The patient was placed in the left lateral decubitis position and pre-procedure medications were administered. After a digital rectal examination of the ano-rectum, the video colonoscope was inserted into the rectum and advanced through the colon to the cecum/TI. The colonoscope was slowly withdrawn in a retrograde panoramic fashion and the colon mucosa was carefully examined including a retroflexed view of the rectum. Findings and interventions are described below. Procedure Difficulty:easy Findings: Terminal Ileum-normal Cecum:normal Ascending Colon: normal Transverse Colon - 8-9 mm sessile polyp removed with cold snare Descending Colon:normal Sigmoid Colon:moderate diverticulosis Rectum: Retroflexion with medium sized internal hemorrhoids, grade I, 4-5 mm sessile polyp removed with cold forceps Anorectum - normal Colon preparation: [place] Bowel Preparation Scale Right colon; 2 Transverse colon: 2 Left colon; 2 (0 = Unprepared colon segment with mucosa not seen due to solid stool that cannot be cleared. 1 = Portion of mucosa of the colon segment seen, but other areas of the colon segment not well seen due to staining, residual stool and/or opaque liquid. 2 = Minor amount of residual staining, small fragments of stool and/or opaque liquid, but mucosa of colon segment seen well. 3 = Entire mucosa of colon segment seen well with no residual staining, small fragments of stool or opaque liquid) Impression and Post Procedure Diagnosis: Endoscopy Findings: possible barretts mild gastritis Colonoscopy Findings: polyps internal hemorrhoids diverticular disease Plan: Await Pathology results Repeat Colonoscopy in 4-5 years due to polyps or earlier if clinically indicated High fiber diet leaflet avoid straining at stool, epsom salts and sitz bath, anusol supps or cream Above findings were reviewed with the patient and relevant handouts were provided if indicated.
[2022-12-15 11:30] VITALS: BP 108/69; PULSE 72; RESP 14; TEMP 36.1; O2SAT 95
[2022-12-15 11:45] VITALS: BP 106/63; PULSE 73; RESP 16; O2SAT 96
[2022-12-15 12:00] VITALS: BP 108/67; PULSE 74; RESP 18; TEMP 36.3; O2SAT 97
== END 2022-12-15 12:11 | disposition home or self-care (01) ==
PROVIDERS: PCP Internal Medicine Medical Oncology; Visit Provider Internal Medicine Gastroenterology
PROC: (CPT 45385; principal; 2022-12-15 11:10)
DX: Z12.11 Encounter for screening for malignant neoplasm of colon (principal); Z86.010 Personal history of colon polyps; D12.3 Benign neoplasm of transverse colon; K62.1 Rectal polyp; K57.30 Diverticulosis of large intestine without perforation or abscess without bleeding; K64.0 First degree hemorrhoids; N40.0 Benign prostatic hyperplasia without lower urinary tract symptoms; K21.9 Gastro-esophageal reflux disease without esophagitis; K29.50 Unspecified chronic gastritis without bleeding; K22.89 Other specified disease of esophagus; K44.9 Diaphragmatic hernia without obstruction or gangrene; G47.33 Obstructive sleep apnea (adult) (pediatric); E78.00 Pure hypercholesterolemia, unspecified; I25.10 Atherosclerotic heart disease of native coronary artery without angina pectoris; F17.210 Nicotine dependence, cigarettes, uncomplicated; Z95.5 Presence of coronary angioplasty implant and graft; E11.9 Type 2 diabetes mellitus without complications; Z79.84 Long term (current) use of oral hypoglycemic drugs; Z79.85 Long-term (current) use of injectable non-insulin antidiabetic drugs; Z79.82 Long term (current) use of aspirin; Z79.899 Other long term (current) drug therapy; Z88.5 Allergy status to narcotic agent; Z91.040 Latex allergy status; Z86.16 Personal history of COVID-19
CPT/HCPCS: 45385; 45380; 43239; 82947; 88305; 88342

== ENCOUNTER → 2022-12-15 09:21 | Outpatient (BNV) | payer BC, SELFPAY | PROVIDERS: PCP Internal Medicine Medical Oncology; Visit Provider Internal Medicine Gastroenterology | DX: Z12.11 Encounter for screening for malignant neoplasm of colon (principal); Z86.010 Personal history of colon polyps; D12.3 Benign neoplasm of transverse colon; D12.8 Benign neoplasm of rectum; K57.30 Diverticulosis of large intestine without perforation or abscess without bleeding; K64.0 First degree hemorrhoids; K21.9 Gastro-esophageal reflux disease without esophagitis; K29.70 Gastritis, unspecified, without bleeding | CPT/HCPCS: 43239; 45380; 45385 ==

== ENCOUNTER 2023-01-18 08:54 | Outpatient (REF) | payer BC, SELFPAY ==
[2023-01-18 10:51] LABS: MANUAL DIFF FLAG NO
[2023-01-18 10:55] LABS: Basophils Percent Auto 0.3 % (0-2); Eosinophils Absolute Auto 0.1 X10*3/uL (0.0-0.4); Eosinophils Percent Auto 0.9 % (0-4); Hematocrit 48.8 % (42.0-52.0); Hemoglobin 15.9 g/dl (14.0-18.0); Imm Gran Abs Auto 0.02 X10*3/uL (0.00-0.03); Imm Gran Pct Auto 0.2 % (0.0-0.4); Lymphocytes Absolute Auto 1.7 X10*3/uL (1.2-4.9); Lymphocytes Percent Auto 19.3 % (20-40); Mean Corpuscular HGB Conc 32.6 g/dl (31.0-36.0); Mean Corpuscular Hemoglobin 30.7 pg (27.0-33.0); Mean Corpuscular Volume 94.2 fL (80.0-98.0); Mean Platelet Volume 9.8 fL (9.4-12.4); Monocytes Absolute Auto 0.8 X10*3/uL (0.1-1.2); Monocytes Percent Auto 8.5 % (2-11); Neutrophils Absolute Auto 6.3 x10*3/uL (2.0-8.3); Neutrophils Percent Auto 70.8 % (45-73); Platelet Count 238 X10*3/uL (160-400); Red Blood Count 5.18 X10*6/uL (4.60-5.80); Red Cell Distribution Width 12.7 % (11.0-16.0); White Blood Count 8.8 X10*3/uL (4.8-10.8)
[2023-01-18 11:19] LABS: Estimated Average Glucose 108 mg/dL; Hemoglobin A1c % 5.4 % (<6.0)
[2023-01-18 11:42] LABS: Microalbum/Creatinine Ratio Ur 3.7 ug/mg cr (<30)
[2023-01-18 11:43] LABS: Alanine Aminotransferase 18 U/L (0-40); Alkaline Phosphatase 63 U/L (39-117); Anion Gap 13 (12-20); Aspartate Amino Transferase 15 U/L (5-37); Bilirubin Total 0.4 mg/dL (0.0-1.0); Blood Urea Nitrogen 14 mg/dL (9-16); Calcium 9.7 mg/dL (8.4-10.2); Carbon Dioxide 27 mmol/L (22-29); Chloride 107 mmol/L (96-108); Cholesterol 113 mg/dL (<200); Estimated Glomerular Filt Rate > 60; Glucose Fasting 117 mg/dL (60-99); HDL Cholesterol 34 mg/dL (>40); LDL Cholesterol Calculated 64 mg/dL (<100); Potassium 4.9 mmol/L (3.3-5.1); Sodium 142 mmol/L (135-145); Total Protein 6.1 g/dL (6.5-8.0); Triglycerides 76 mg/dL (<150)
== END 2023-01-18 08:55 | disposition home or self-care (01) ==
LOC: HO.10HDL 08:54
PROVIDERS: Visit Provider Internal Medicine Medical Oncology
DX: E11.9 Type 2 diabetes mellitus without complications (principal); E78.5 Hyperlipidemia, unspecified; E66.01 Morbid (severe) obesity due to excess calories
CPT/HCPCS: 36415; 80053; 80061; 82043; 82570; 83036; 85025

== ENCOUNTER 2023-05-14 09:53 | Outpatient (REF) | payer BC, SELFPAY ==
[2023-05-14 12:43] LABS: CT PCR NOT DETECTED (Not Detect.); NG PCR NOT DETECTED (Not Detect.)
== END 2023-05-14 09:54 | disposition home or self-care (01) ==
LOC: HO.10HDLNP 09:53
PROVIDERS: Visit Provider Internal Medicine Medical Oncology
DX: L03.90 Cellulitis, unspecified (principal); Z20.2 Contact with and (suspected) exposure to infections with a predominantly sexual mode of transmission; A54.9 Gonococcal infection, unspecified
CPT/HCPCS: 0353U; 87070; 87077; 87186; 87205

== ENCOUNTER 2024-10-10 08:06 | Outpatient (REF) | payer BC, MEDICARE, SELFPAY ==
--- OUTSIDE RECORDS SUMMARY | 2024-06-27 05:28 | XMS_ITS ---
Author Organization Jose Patel III, MD Address [address] [place] [address] Care Team Providers Care Machine Striper Name Role Phone Jose Patel Primary Care Provider [phone] REASON FOR VISIT Message Social History Sex Assigned At : Social History Observation Description Sex Assigned At Male Encounters Encounter Location Date Provider Diagnosis Jose Patel III, MD [address] [place] [address] [place] [id number] 06/27/2024 Jose Patel Plan Of Treatment Next Appt Details Provider Name:Jose Patel, 11/29/2024 10:00:00 AM, [address] [place] [address] [place], [address], Provider Name:Jose Patel, 09/26/2025 09:30:00 AM, [address] [place] [address] [place], [phone], Progress Notes * Ulises SWENSON MDOB: [birth year] (63 yo M)Acc No.[id number]:06/27/2024 Patient: Ulises TORREZ :1960 A ge:63 Y S ex:Male Address:[address] [place] [id number] * true * Date: Generated for Mayco yost/Jg/Jaimeitting on: 0 10/10/2024 08:10 AM EDT
[2024-10-10 10:13] LABS: MANUAL DIFF FLAG NO
[2024-10-10 10:42] LABS: Hematocrit 45.8 % (42.0-52.0); Hemoglobin 14.8 g/dl (14.0-18.0); Imm Gran Abs Auto 0.03 X10*3/uL (0.00-0.03); Imm Gran Pct Auto 0.4 % (0.0-0.4); Lymphocytes Absolute Auto 1.6 X10*3/uL (1.2-4.9); Mean Corpuscular HGB Conc 32.3 g/dl (31.0-36.0); Mean Corpuscular Hemoglobin 31.0 pg (27.0-33.0); Mean Corpuscular Volume 95.8 fL (80.0-98.0); NRBC Abs Auto 0.000 X10*3/uL (0.0-0.012); NRBC Pct Auto 0.0 /100WBC (0.0-0.2); Platelet Count 240 X10*3/uL (160-400); Red Blood Count 4.78 X10*6/uL (4.60-5.80); White Blood Count 6.8 X10*3/uL (4.8-10.8)
[2024-10-10 11:05] LABS: Prostate Specific Antigen 2.23 ng/mL (<0.05-4.0)
[2024-10-10 11:07] LABS: Alanine Aminotransferase 16 U/L (0-40); Albumin Level 3.9 g/dL (3.5-5.0); Alkaline Phosphatase 57 U/L (39-117); Anion Gap 11 (12-20); Aspartate Amino Transferase 24 U/L (5-37); Blood Urea Nitrogen 15 mg/dL (9-16); Calcium 8.8 mg/dL (8.4-10.2); Carbon Dioxide 29 mmol/L (22-29); Chloride 108 mmol/L (96-108); Cholesterol 117 mg/dL (<200); Estimated Glomerular Filt Rate > 60; HDL Cholesterol 37 mg/dL (>40); Potassium 4.6 mmol/L (3.3-5.1); Sodium 143 mmol/L (135-145); Total Protein 6.1 g/dL (6.5-8.0); Triglycerides 70 mg/dL (<150)
== END 2024-10-10 08:07 | disposition home or self-care (01) ==
LOC: HO.10HDL 08:06
PROVIDERS: Visit Provider Internal Medicine Medical Oncology
DX: E11.9 Type 2 diabetes mellitus without complications (principal); N52.9 Male erectile dysfunction, unspecified; G62.9 Polyneuropathy, unspecified; E66.01 Morbid (severe) obesity due to excess calories; Z12.5 Encounter for screening for malignant neoplasm of prostate
CPT/HCPCS: 36415; 80053; 80061; 84153; 85025